=== PATIENT | male | born 1980 | race Hispanic/Latino ===

== ENCOUNTER 2016-12-25 19:52 | Emergency (ER) | payer OTHER ==
[2016-12-25 19:56] VITALS: BP 130/80; PULSE 76; RESP 18; TEMP 98.2; O2SAT 98
--- NOTE | 2016-12-25 20:08 | ED PDOC ---
HPI: Psych/Substance Abuse Time Seen by Provider: 12/25/16 20:00 Chief Complaint (Nursing): Alcohol Ingestion Chief Complaint (Provider): Alcohol Intoxication ED Caveat: Intoxicated History Per: Patient, EMS History/Exam Limitations: intoxication Onset/Duration Of Symptoms: Hrs Additional Complaint(s): Patient is a 36 y/o male with no past medical history who was brought to the ED by EMS after being found intoxicated in a bar. Patient is awake and responding tot questions. He admits to drinking and denies any suicidal or homicidal ideation, as well as any injuries. PCP: Non CPH Provider Past Medical History Reviewed: Historical Data, Nursing Documentation, Vital Signs Vital Signs: Last Vital Signs Temp 98.2 F 12/25/16 19:53 Pulse 76 12/25/16 19:53 Resp 18 12/25/16 19:53 BP 130/80 12/25/16 19:53 Pulse Ox 98 12/25/16 19:53 - Medical History PMH: No Chronic Diseases - Surgical History Surgical History: No Surg Hx - Family History Family History: States: No Known Family Hx - Social History Alcohol: Social - Allergies Allergies/Adverse Reactions: Allergies Allergy/AdvReac Type Severity Reaction Status Date / Time No Known Allergies Allergy Verified 12/25/16 19:53 Review of Systems ROS Statement: Except As Marked, All Systems Reviewed And Found Negative Musculoskeletal: Positive for: Other (No injuries) Physical Exam - Reviewed Nursing Documentation Reviewed: Yes Vital Signs Reviewed: Yes - Physical Exam Appears: Positive for: No Acute Distress Head Exam: Positive for: ATRAUMATIC, NORMOCEPHALIC Skin: Positive for: Normal Color, Warm, Dry Eye Exam: Positive for: Normal appearance, EOMI, PERRL Neck: Positive for: Normal, Painless ROM, Supple Cardiovascular/Chest: Positive for: Regular Rate, Rhythm. Negative for: Murmur Respiratory: Positive for: Normal Breath Sounds. Negative for: Respiratory Distress Gastrointestinal/Abdominal: Positive for: Normal Exam, Soft. Negative for: Tenderness Back: Positive for: Normal Inspection. Negative for: L CVA Tenderness, R CVA Tenderness, Vertebral Tenderness Extremity: Positive for: Normal ROM. Negative for: Pedal Edema, Deformity Neurologic/Psych: Positive for: Alert, Oriented (x3), Other (slightly slurred speech). Negative for: Motor/Sensory Deficits - ECG O2 Sat by Pulse Oximetry: 98 (RA) Pulse Ox Interpretation: Normal - Progress Re-evaluation Time: 22:37 Condition: Improved (Awake alert oriented x 3 No focal M/S deficits) Medical Decision Making Medical Decision Making: Time: 1999 Initial Impression: Alcohol intoxication Scribe Attestation: Documented by Vargas Barajas, acting as a scribe for Yung Dobbins MD Provider Scribe Attestation: All medical record entries made by the Scribe were at my direction and personally dictated by me. I have reviewed the chart and agree that the record accurately reflects my personal performance of the history, physical exam, medical decision making, and the department course for this patient. I have also personally directed, reviewed, and agree with the discharge instructions and disposition. Disposition - Clinical Impression Clinical Impression: Alcohol ingestion - Patient ED Disposition Is Patient to be Admitted: No Counseled Patient/Family Regarding: Diagnosis, Need For Followup - Disposition Referrals: [facility] [Outside] Disposition: Routine/Home Disposition Time: 22:38 Condition: FAIR Instructions: Alcohol Intoxication (ED) Forms: [employer] (Greek)
== END 2016-12-25 22:45 | disposition home or self-care (01) ==
LOC: H.ER 19:52
DX: F10.129 Alcohol abuse with intoxication, unspecified (principal)

== ENCOUNTER 2018-03-03 23:09 | Emergency (ER) | payer OTHER ==
[2018-03-03 23:16] VITALS: RESP 18
[2018-03-03] MEDS ORDERED: Sodium Chloride 0.9% 1,000 ML IV STA (23:30)
--- NOTE | 2018-03-04 01:06 | ED PDOC ---
HPI: Psych/Substance Abuse Time Seen by Provider: 03/03/18 23:19 Chief Complaint (Nursing): Alcohol Ingestion Chief Complaint (Provider): Alcohol Ingestion ED Caveat: Intoxicated History Per: EMS History/Exam Limitations: intoxication Associated Symptoms: Other (Vomiting) Additional Complaint(s): 38 y/o male brought in by EMS for evaluation of public intoxication. Per EMS, patient was vomiting BEEF BREAKER. He denies any active medical complaint. Patient is unable to provide history due to his intoxicated state. PMD: non provided Past Medical History Reviewed: Historical Data, Nursing Documentation, Vital Signs Vital Signs: Last Vital Signs Temp 97.8 F 03/03/18 23:14 Pulse 82 03/03/18 23:14 Resp 18 03/03/18 23:14 BP 131/63 03/03/18 23:14 Pulse Ox 99 03/03/18 23:14 - Medical History PMH: No Chronic Diseases - Surgical History Surgical History: No Surg Hx - Family History Family History: States: Unknown Family Hx - Social History Current smoker - smoking cessation education provided: No Alcohol: None Drugs: Denies - Allergies Allergies/Adverse Reactions: Allergies Allergy/AdvReac Type Severity Reaction Status Date / Time Unobtainable Allergy Verified 03/03/18 23:14 Review of Systems Review Of Systems: ROS cannot be obtained secondary to pt's inabilty to answer questions. Physical Exam - Reviewed Nursing Documentation Reviewed: Yes Vital Signs Reviewed: Yes - Physical Exam Appears: Positive for: No Acute Distress Head Exam: Positive for: ATRAUMATIC, NORMOCEPHALIC Skin: Positive for: Normal Color, Warm, Dry Eye Exam: Positive for: Normal appearance, EOMI, PERRL Cardiovascular/Chest: Positive for: Regular Rate, Rhythm. Negative for: Murmur Respiratory: Positive for: Normal Breath Sounds. Negative for: Wheezing Gastrointestinal/Abdominal: Positive for: Normal Exam, Soft. Negative for: Tenderness Extremity: Positive for: Normal ROM. Negative for: Pedal Edema, Swelling Neurologic/Psych: Positive for: Gait (unsteady), Other (slurred speech) - ECG O2 Sat by Pulse Oximetry: 99 (RA) Pulse Ox Interpretation: Normal Medical Decision Making Medical Decision Makin 38 y/o male brought in for alcohol intoxication and vomiting --Labs --Isabelfran [id number] Patient is clinically sober for discharge. Diagnosis is alcohol intoxication. Scribe Attestation: Documented by Yennifer Hernandez, acting as a scribe for Lobo Mccoy MD. Provider Scribe Attestation: All medical record entries made by the Scribe were at my direction and personally dictated by me. I have reviewed the chart and agree that the record accurately reflects my personal performance of the history, physical exam, medical decision making, and the department course for this patient. I have also personally directed, reviewed, and agree with the discharge instructions and disposition. Disposition - Clinical Impression Clinical Impression: Alcohol abuse with intoxication - Patient ED Disposition Is Patient to be Admitted: No - Disposition Disposition: Routine/Home Disposition Time: 05:55 Condition: STABLE Instructions: Alcohol Use - When Is Drinking a Problem? Forms: [employer] (Portuguese)
[2018-03-04 07:17] VITALS: BP 122/78; PULSE 80; TEMP 98; O2SAT 100
== END 2018-03-04 06:35 | disposition home or self-care (01) ==
LOC: H.ER 23:09
DX: F10.129 Alcohol abuse with intoxication, unspecified (principal); Y90.8 Blood alcohol level of 240 mg/100 ml or more
CPT/HCPCS: 80320; 82948; 96360; 99283; J2405; J7030